=== PATIENT | male | born 1985 | race Caucasian/White ===

== ENCOUNTER 2022-01-10 18:27 | Emergency (ER) | payer SELFPAY ==
[2022-01-10 18:51] VITALS: BP 146/88; PULSE 85; RESP 16; TEMP 36.9; O2SAT 98
--- NOTE | 2022-01-10 20:19 | W.ED.ABDPA2 ---
HPI - Abdominal Pain General: Chief Complaint: Abdominal Pain Stated Complaint: RLQ abd pain Time Seen by Provider: 01/10/22 20:18 History of Present Illness: Mr. Pickering is a 36-year-old gentleman without significant past medical history presents to the emergency department due to right lower quadrant and flank abdominal pain. Onset of symptoms was 2 days ago. He describes intermittent severe pain which is cramping and stabbing. Denies specific associated provoking factors. Currently denies or has very minimal pain. Out worse pain is severe and takes the breath away from him/brings him to his knees. No testicular pain or penile discharge. Denies similar episodes in the past. No other specific changes in health, exacerbating, or alleviating factors identified. Onset (ago): day(s) Pain Consistency: intermittent Location: RLQ Quality: cramping and stabbing Exacerbating factors: nothing Relieving factors: nothing Review of Systems General: Reports: 10 or more systems reviewed and unremarkable except in HPI and below PFSH ED PFSH: Medical History URI (upper respiratory infection) Surgical History History of removal of cyst Family History Mother Stage 4 chronic kidney disease Diabetes Father Healthy adult Social History Smoking and tobacco status: current every day smoker Alcohol intake: current Alcohol intake frequency: few times a week Household members: spouse and children Marital status: Current occupational status: employed History of recent travel: No Physical Exam Const: COMMON NORMALS: alert GENERAL APPEARANCE: cooperative and well developed HENMT: COMMON NORMALS: normocephalic and atraumatic HEAD & SCALP: normocephalic and atraumatic Eye: COMMON NORMALS: conjunctivae normal CONJUNCTIVA: Yes conjunctivae normal SCLERA: sclerae normal Neck/C-Spine: COMMON NORMALS: supple GENERAL: Yes trachea midline Resp: COMMON NORMALS: normal respiratory effort EFFORT & INSPECTION: Yes able to speak in complete sentences Cardio: COMMON NORMALS: regular rate and regular rhythm RATE: regular rate RHYTHM: regular rhythm GI: COMMON NORMALS: Soft to palpation PALPATION: Yes Soft to palpation, Yes Tenderness to palpation present (GI) Details: RLQ, No Guarding due to palpation present (GI), No Rigid due to palpation and No Rebound tenderness present PERCUSSION: normal to percussion Extremity: GENERAL: Yes normal exam except as noted and No edema Neuro: COMMON NORMALS: moves all extremities SENSORIUM/ORIENTATION: Yes alert and No Orientation impaired Psych: COMMON NORMALS: mental status grossly normal and Normal thought process present THOUGHT PROCESS: Normal thought process present Course ED course: - Patient was seen and evaluated by me at bedside - Patient placed on cardiac monitors, IV access obtained - Initial evaluation notable for exam as above, current minimal pain - Labs personally interpreted by me - Labs notable for mild leukocytosis, no acute metabolic abnormality. Urinalysis with mild hematuria, no evidence of urinary tract infection. - Imaging notable for 4.2 mm stone at the right UVJ with moderate right hydroureteronephrosis and perinephric/periureteral inflammation. - Upon serial reexamination after treatment the patient was similar without recurrence of pain - Based on patient history, evaluation, and testing as interpreted the most likely cause of the patient's condition is kidney stone - The results of ED evaluation were discussed with the patient including prescriptions and/or symptomatic cares (if applicable) including appropriate and responsible use, followup plan, and return precautions. The patient verbalized understanding and felt safe for discharge. - Patient discharged in satisfactory condition. Note: Click bubbles or prepopulated jackson in note writing are used for assistance with data collection and billing and are inherently more limited than narrative and other text portions of this note. Please use narrative for additional clinical history and defer to narrative/free test for any case of contradictory information. If information appears in only free text or click bubble it should be considered present or absent as reported. Please contact note physician underwriter for clarifications of clinical information or contradictory information. MDM is a brief summary, contradictory or erroneous seeming information should be clarified and full note should be reviewed. Vital Signs: Vital signs: Vital Signs Temperature 98.4 F 01/10/22 18:51 Pulse Rate 75 01/10/22 22:34 Respiratory Rate 16 01/10/22 22:34 Blood Pressure 137/80 01/10/22 22:34 Pulse Oximetry 97 01/10/22 22:34 MDM - Abdominal Pain Medical Decision Making 36-year-old gentleman presenting with 2-day history of intermittent abdominal pain/flank pain. No infectious symptoms. ED evaluation with mild leukocytosis however no evidence of urinary tract infection. Patient has 4.2 mm UVJ ureteral lithiasis. Satisfactory for outpatient management with Flomax, analgesia, antiemetic and strict return precautions. Medical Records I reviewed the patient's medical records. Lab Data I reviewed the patient's lab results. : 01/10/22 20:32 01/10/22 21:37 Labs/Radiology: Radiology Impressions Abdomen/Pelvis CT 01/10/22 21:00 IMPRESSION: 1. 4.2 mm stone at the right ureterovesicular junction with moderate right hydroureteronephrosis and mild right perinephric/periureteral inflammation. 2. Incidental/nonacute findings are listed in the report. Laboratory Results WBC 14.5 10^3/uL (4.0-10.0) H 01/10/22 20: RBC 5.21 10^6/uL (4.1-5.3) 01/10/22 20: Hgb 16.3 g/dL (11.7-16.6) 01/10/22 20: Hct 45.9 % (42.0-52.0) 01/10/22 20: MCV 88.1 fl (80-94) 01/10/22: MCH 31.3 pg (28.0-34.0) 01/10/22 20: MCHC 35.5 g/dL (30.0-36.0) 01/10/22 20: RDW 11.9 % (12.1-15.1) L 01/10/22: Plt Count 190 10^3/cmm (130-400) 01/10/22 20:32 MPV 9.8 fL (7.4-10.4) 01/10/22 20: Neut % (Auto) 82.4 % 01/10/22: Lymph % (Auto) 9.8 % 01/10/22 20: [place] % (Auto) 6.6 % 01/10/22 20: Eos % (Auto) 0.8 % 01/10/22 20: Baso % (Auto) 0.3 % 01/10/22: Neut # (Auto) 11.95 10^3/uL (1.8-7.7) H 01/10/22 20:32 Lymph # (Auto) 1.4 10^3/uL (0.8-4.8) 01/10/22 20:32 [place] # (Auto) 1.0 10^3/uL (0.2-0.9) H 01/10/22 20:32 Eos # (Auto) 0.1 10^3/uL (0.0-0.8) 01/10/22 20:32 Baso # (Auto) 0.1 10^3/uL (0.0-0.1) 01/10/22 20:32 Nucleated RBC % (auto) 0 % 01/10/22 20:32 Nucleated RBCs # 0.0 /100WBC 01/10/22 20:32 Sodium 141 mmol/L (136-145) 01/10/22 21:37 Potassium 4.3 mmol/L (3.5-5.1) 01/10/22 21:37 Chloride 106 mmol/L (98-107) 01/10/22 21:37 Carbon Dioxide 22 mmol/L (22-29) 01/10/22 21:37 Anion Gap 17.3 (5-19) 01/10/22 21:37 BUN 17 mg/dL (6-20) 01/10/22 21:37 Creatinine 1.1 mg/dL (0.7-1.2) 01/10/22 21:37 GFR Calculation 75.7 mL/min (90-130) L 01/10/22 21:37 Glucose 95 mg/dL (65-115) 01/10/22 21:37 Calculated Osmolality 293 mOsm/kg (285-295) 01/10/22 21:37 Calcium 8.8 mg/dL (8.5-10.5) 01/10/22 21:37 Total Bilirubin 0.7 mg/dL (0.15-1.2) 01/10/22 21:37 AST 25 U/L (0-40) 01/10/22 21:37 ALT 26 U/L (0-41) 01/10/22 21:37 Alkaline Phosphatase 68 IU/L (40-130) 01/10/22 21:37 Total Protein 6.9 g/dL (6.6-8.7) 01/10/22 21:37 Albumin 4.6 g/dL (3.5-5.2) 01/10/22 21:37 Globulin 2.3 g/dL (1.3-4.6) 01/10/22 21:37 Lipase 33 U/L (13-60) 01/10/22 21:37 Urine Color Yellow (Yellow) 01/10/22 20:32 Urine Appearance Clear (CLEAR) 01/10/22 20:32 Urine pH 5 (5-7) 01/10/22 20:32 Ur Specific [place] 1.025 (1.005-1.030) 01/10/22 20:32 Urine Protein Neg (Negative) 01/10/22 20:32 Urine Glucose (UA) Norm (Normal) 01/10/22 20:32 Urine Ketones Negative (Negative) 01/10/22 20:32 Urine Blood 2+ (Negative) H 01/10/22 20:32 Urine Nitrate Negative (Negative) 01/10/22 20:32 Urine Bilirubin Neg (Negative) 01/10/22 20:32 Urine Urobilinogen Norm mg/dL (Negative) 01/10/22 20:32 Ur Leukocyte Esterase Negative (Negative) 01/10/22 20:32 Urine RBC 10-15 /hpf (0-2) H 01/10/22 20:32 Urine WBC 0-4 /hpf (0-5) H 01/10/22 20:32 Ur Squamous Epith Cells 0-4 /hpf (0-5) H 01/10/22 20:32 Calcium Oxalate Crystal 0-4 /hpf H 01/10/22 20:32 Amorphous Sediment Not Reportable 01/10/22 20:32 Urine Bacteria Trace /hpf (NONE) 01/10/22 20:32 Urine Mucus 2+ /hpf 01/10/22 20:32 Discharge Plan Discharge Patient Disposition: Home Clinical Impression: Right ureteral stone Condition: Stable Prescriptions: New oxycodone 5 mg tablet 5 mg PO Q4H PRN (Reason: pain) Qty: 20 0RF ondansetron 4 mg tablet,disintegrating 4 mg PO Q8H PRN (Reason: nausea and vomiting) Qty: 15 0RF Flomax 0.4 mg capsule 0.4 mg PO DAILY Qty: 14 0RF Discharge Orders: Discharge ED (Routine); Ordered 01/10/22 Ordered By: Mychal Freitas Referrals: Ming Solomon FNP [Primary Care Provider] - Discharge Diet: Usual diet Discharge Activity: Increase activity as tolerated Patient Instructions: Kidney Stones (ED), How to Strain Your Urine (ED), Opioid Safety Activity Restrictions/Additional Instructions: Thank you for visiting the emergency department. You were seen and evaluated for flank pain. You are found to have a kidney stone at the UVJ which is low in the ureter and should pass on its own. I will prescribe nausea medication, pain medication, and Flomax. Please follow-up with primary care provider. Please strain your urine. Please return to the emergency department for uncontrolled pain, fevers, or anything else that you are concerned about and feel needs emergency department evaluation. Coding Level of Care Code ED [employer] for [employer]
[2022-01-10 20:53] LABS: Add Urine Microscopic? YES; Bilirubin Urine Neg (Negative); Blood Urine 2+ (Negative); Glucose Urine UA Norm (Normal); Ketones Urine Negative (Negative); Leukocyte Esterase Urine Negative (Negative); Nitrate Urine Negative (Negative); Protein Urine Neg (Negative); Specific Gravity, Urine 1.025 (1.005-1.030); Squamous Epithelial Cell Urine 0-4 /hpf (0-5); Urine Appearance Clear (CLEAR); Urine Color Yellow (Yellow); Urobilinogen Urine Norm (Negative); WBC Urine 0-4 /hpf (0-5); pH Urine 5 (5-7)
[2022-01-10 20:54] LABS: Add Urine Culture? Yes; Bacteria Urine TRACE /hpf; Calcium Oxalate Crystals Urine 0-4 /hpf; Mucus Urine 2+ /hpf
[2022-01-10 20:59] LABS: Basophils # 0.1 10^3/uL (0.0-0.1); Basophils % 0.3 %; Eosinophils # 0.1 10^3/uL (0.0-0.8); Eosinophils % 0.8 %; Hematocrit 45.9 % (42.0-52.0); Hemoglobin 16.3 g/dL (11.7-16.6); Lymphocytes # 1.4 10^3/uL (0.8-4.8); Lymphocytes % 9.8 %; Mean Corpuscular HGB Conc 35.5 g/dL (30.0-36.0); Mean Corpuscular Hemoglobin 31.3 pg (28.0-34.0); Mean Corpuscular Volume 88.1 fl (80-94); Mean Platelet Volume 9.8 fL (7.4-10.4); Monocytes % 6.6 %; Neutrophils # 11.95 10^3/uL (1.8-7.7); Neutrophils % 82.4 %; Nucleated Red Blood Cells % 0 %; Platelet Count 190 10^3/cmm (130-400); Red Blood Count 5.21 10^6/uL (4.1-5.3); Red Cell Distribution Width 11.9 % (12.1-15.1); White Blood Count 14.5 10^3/uL (4.0-10.0)
--- NOTE | 2022-01-10 21:00 | CTR_ITS ---
PROCEDURE INFORMATION: Exam: CT Abdomen And Pelvis Without Contrast Exam date and time: 01/10/2022 9:07 PM Age: 36 years old Clinical indication: Other: Hematuria; Abdominal pain; Flank; Right; Additional info: R flank pain, hematuria TECHNIQUE: Imaging protocol: Computed tomography of the abdomen and pelvis without contrast. Radiation optimization: All CT scans at this facility use at least one of these dose optimization techniques: automated exposure control; mA and/or kV adjustment per patient size (includes targeted exams where dose is matched to clinical indication); or iterative reconstruction. COMPARISON: No relevant prior studies available. RADIATION DOSE METRICS: Total DLP (mGy-cm): 1277.4 FINDINGS: Limitations: Evaluation of solid organs and vasculature is limited without intravenous contrast. This is standard protocol for evaluation of possible urolithiasis. Lungs: Visualized lungs are clear. Pleural spaces: No pleural effusion. Heart: Visualized portions of the heart are unremarkable. Liver: Bilobed cysts in the liver measuring 2.1 cm. Gallbladder and bile ducts: The gallbladder is unremarkable. No biliary ductal dilatation. Pancreas: The pancreas is unremarkable. No pancreatic ductal dilatation. Spleen: The spleen is unremarkable. Small splenule in the left upper quadrant. Adrenal glands: The right and left adrenal glands are unremarkable. Kidneys and ureters: 4.2 mm stone at the right ureterovesicular junction with moderate right hydroureteronephrosis and mild right perinephric/periureteral inflammation. The left kidney is unremarkable. The left ureter is unremarkable. Stomach and bowel: The small bowel is unremarkable. The stomach is collapsed, which can limit evaluation. No focal abnormality in the stomach otherwise. Appendix: The appendix is visualized and is unremarkable. No findings to suggest acute appendicitis. Intraperitoneal space: No free intraperitoneal air. No ascites. No loculated fluid collections to suggest an abscess. Vasculature: No evidence for aortic aneurysm. Lymph nodes: No lymphadenopathy. Urinary bladder: The bladder is incompletely filled, which can limit evaluation. No focal abnormality in the bladder however. Reproductive: Nonspecific parenchymal calcifications in the prostate gland. Bones/joints: No acute fracture. Soft tissues: No acute abnormality in the extra-abdominal soft tissues. CT/CT kidney stone [id number] IMPRESSION: 1. 4.2 mm stone at the right ureterovesicular junction with moderate right hydroureteronephrosis and mild right perinephric/periureteral inflammation. 2. Incidental/nonacute findings are listed in the report.
[2022-01-10 22:11] LABS: Alanine Aminotransferase 26 U/L (0-41); Albumin Level 4.6 g/dL (3.5-5.2); Alkaline Phosphatase 68 IU/L (40-130); Anion Gap 17.3 (5-19); Aspartate Amino Transferase 25 U/L (0-40); Blood Urea Nitrogen 17 mg/dL (6-20); Calcium 8.8 mg/dL (8.5-10.5); Carbon Dioxide 22 mmol/L (22-29); Chloride 106 mmol/L (98-107); Globulin 2.3 g/dL (1.3-4.6); Glomerular Filtration Rate 75.7 mL/min (90-130); Glucose 95 mg/dL (65-115); Lipase 33 U/L (13-60); Osmolality Calculated 293 mOsm/kg (285-295); Potassium 4.3 mmol/L (3.5-5.1); Sodium 141 mmol/L (136-145); Total Bilirubin 0.7 mg/dL (0.15-1.2); Total Protein 6.9 g/dL (6.6-8.7)
[2022-01-10] MEDS: tamsulosin 0.4 mg Capsule PO (22:25)
[2022-01-10] MEDS: ondansetron 4 MG Tablet 8 MG PO (22:25)
[2022-01-10 22:34] VITALS: BP 137/80; PULSE 75; RESP 16; O2SAT 97
[2022-01-10] MEDS: oxyCODONE 5 mg IR Tab/Cap 10 MG PO (22:34)
== END 2022-01-10 22:30 | disposition home or self-care (01) ==
PROVIDERS: Emergency Provider Emergency Medicine; PCP Nurse Practitioner Family
DX: N20.1 Calculus of ureter (principal); F17.210 Nicotine dependence, cigarettes, uncomplicated
CPT/HCPCS: 74176; 80053; 81001; 83690; 85025; 87086; 99285; Q0162

== ENCOUNTER 2022-01-22 10:20 | Outpatient (CLI) | payer SELFPAY | END 2022-01-22 10:21 | disposition home or self-care (01) | LOC: RAD 10:21 | PROVIDERS: PCP Nurse Practitioner Family; Visit Provider Nurse Practitioner Family | DX: N20.0 Calculus of kidney (principal); N20.1 Calculus of ureter | CPT/HCPCS: 74018; 81003 ==

== ENCOUNTER 2022-02-06 09:58 | Outpatient (CLI) | payer SELFPAY ==
--- NOTE | 2022-02-06 10:04 | XR_ITS ---
WS: [id number] XR KUB [id number] REASON FOR EXAM: Stone FINDINGS: No urinary tract calculi are identified. Bowel gas pattern is unremarkable. No free air or retroperitoneal air. No mass identified. XR/XR KUB [id number] IMPRESSION: No urinary tract calculi identified.
== END 2022-02-06 09:59 | disposition home or self-care (01) ==
LOC: RAD 10:00
PROVIDERS: PCP Nurse Practitioner Family; Visit Provider Urology
DX: N20.1 Calculus of ureter (principal)
CPT/HCPCS: 74018

== ENCOUNTER 2022-02-27 08:20 | Outpatient (CLI) | payer SELFPAY ==
--- NOTE | 2022-02-27 08:32 | XR_ITS ---
WS: [id number] Exam: XR KUB [id number] Date/Time of Exam: 02/27/2022 8:32 AM Reason For Exam: STONES No bowel obstruction or free air. No sign of organ enlargement. Regional bony elements are unremarkab le. XR/XR KUB [id number] IMPRESSION: 1. No acute abdominal process.
== END 2022-02-27 08:21 | disposition home or self-care (01) ==
PROVIDERS: PCP Nurse Practitioner Family; Visit Provider Urology
DX: N20.1 Calculus of ureter (principal)
CPT/HCPCS: 74018; 81003

== ENCOUNTER 2022-03-23 09:01 | Outpatient (CLI) | payer SELFPAY ==
--- NOTE | 2022-03-23 09:15 | US_ITS ---
WS: [id number] RENAL ULTRASOUND HISTORY: Right Ureteral calculus COMPARISON: None available. TECHNIQUE: 2-D and color Doppler imaging of the kidney submitted. Right kidney: 12.7 cm x 6.8 cm x 6.0 cm. Normal echogenicity with no hydronephrosis or mass. Left kidney: 12.3 cm x 7.6 cm x 4.8 cm. Normal echogenicity with no hydronephrosis or mass. Aorta: Normal. Urinary Bladder: Normal distention. US/US renal BI* [id number] IMPRESSION: Normal renal ultrasound.
== END 2022-03-23 09:02 | disposition home or self-care (01) ==
LOC: RAD 09:04
PROVIDERS: PCP Nurse Practitioner Family; Visit Provider Urology
DX: N20.1 Calculus of ureter (principal)
CPT/HCPCS: 76770